=== PATIENT | female | born 1950 | race Caucasian/White ===

== ENCOUNTER 2020-04-15 20:42 | Emergency (ER) | payer BC ==
[~2020-04-15] VITALS: Ht 144.8 cm; Wt 75.9 kg
[~2020-04-15 20:42] MED LIST: IBUPROFEN200 MG PO; NORCO 5-325 TA1 EACH PO
== END 2020-04-15 22:30 | disposition home or self-care (01) ==
LOC: ED 20:42
DX: S01.01XA Laceration without foreign body of scalp, initial encounter (principal); W22.8XXA Striking against or struck by other objects, initial encounter; Z87.891 Personal history of nicotine dependence; Z88.5 Allergy status to narcotic agent
CPT/HCPCS: 12001; 99282-25

== ENCOUNTER 2024-01-30 16:51 | Emergency (ER) | payer BC ==
[~2024-01-30] VITALS: Ht 149.9 cm; Wt 72.4 kg
[~2024-01-30 16:51] MED LIST changes: +CALCIUM500 MG PO; +HYDROCODON-ACE1 EA11 PO; +MAGNESIUM30 MG PO; +OMEGA 3 FISH O1 EACH PO
[2024-01-30] MEDS ORDERED: LOSARTAN POTASS25 MG PO (18:15)
[2024-01-30] MEDS ORDERED: CLOPIDOGREL75 MG PO (18:15)
[2024-01-30] MEDS ORDERED: METOPROLOL TART25 MG PO (18:16)
[2024-01-30] MEDS ORDERED: ASPIRIN81 MG PO (18:16)
[2024-01-30] MEDS ORDERED: ATORVASTATIN CA80 MG PO (18:16)
[2024-01-30] MEDS ORDERED: CYCLOBENZAPRINE10 MG PO (18:34)
[2024-01-30] MEDS ORDERED: ONDANSETRON ODT8 MG PO (18:34)
[2024-01-30] MEDS ORDERED: HYDROCODON-ACE1 EA10 PO (18:34)
[2024-01-30] MEDS ORDERED: HYDROmorphone HCL 1 MG/ML SYR IM ONE (18:45)
[2024-01-30] MEDS ORDERED: HYDROCODONE/ACETA 5/325 TAB PO ONE (19:00)
[2024-01-30 19:12] VITALS: BP 164/67
== END 2024-01-30 19:12 | disposition home or self-care (01) ==
LOC: ED 16:51
DX: M25.512 Pain in left shoulder (principal); I25.2 Old myocardial infarction; Z87.891 Personal history of nicotine dependence; Z95.5 Presence of coronary angioplasty implant and graft; Z88.5 Allergy status to narcotic agent; Z79.82 Long term (current) use of aspirin; Z79.899 Other long term (current) drug therapy; X50.1XXA Overexertion from prolonged static or awkward postures, initial encounter
CPT/HCPCS: 99283

== ENCOUNTER 2024-05-01 05:34 | Emergency (ER) | payer BC ==
[~2024-05-01] VITALS: Ht 149.9 cm; Wt 74.8 kg
[~2024-05-01 05:34] MED LIST changes: +ASPIRIN81 MG PO; +ATORVASTATIN CA80 MG PO; +CLOPIDOGREL75 MG PO; +CYCLOBENZAPRINE10 MG PO; +HYDROCODON-ACE1 EA10 PO; +LOSARTAN POTASS25 MG PO; +METOPROLOL TART25 MG PO; +ONDANSETRON ODT8 MG PO
[2024-05-01] MEDS ORDERED: ASPIRIN 81 MG CHEW PO ONE (05:45)
[2024-05-01 05:52] LABS: EOSINOPHILS 2.5 % (0-6); HEMATOCRIT 39.3 % (35.0-50.0); HEMOGLOBIN 13.5 g/dL (12.0-18.0); LYMPHOCYTES 39.3 % (24-44); MCHC 34.4 g/dl (30-36); MCV 90.2 fl (81-99); MONOCYTES 10.8 % (0-12); NEUTROPHILS 46.4 % (39-80); PLATELET COUNT 190 K/uL (140-440); RBC 4.36 M/ul (4.3-5.7); RDW 13.8 (10.5-15.0)
[2024-05-01] MEDS ORDERED: FAMOTIDINE 20 MG/ 2 ML VIAL IV ONE (06:15)
[2024-05-01 06:26] LABS: ALBUMIN 3.3 g/dL (3.4-5.0); ALBUMIN/GLOBULIN RATIO 0.85 (1.1-2.4); ANION GAP 11.8 (7-21); BILIRUBIN, TOTAL 0.5 ng/dL (0.2-1.0); BUN/CREATININE RATIO 19.17 (6.0-28.6); CALCIUM 8.4 mg/dL (8.5-10.1); CREATININE, SERUM 0.73 mg/dL (0.55-1.02); MAGNESIUM 2.2 mg/dL (1.8-2.4); POTASSIUM 3.8 mmol/L (3.5-5.1); PROTEIN, TOTAL 7.2 g/dL (6.4-8.2)
[2024-05-01 06:26] LABS: CORONAVIRUS COVID-19 AG NEGATIVE (NEGATIVE); INFLUENZA A AG NEGATIVE (NEGATIVE); INFLUENZA B AG NEGATIVE (NEGATIVE)
[2024-05-01 06:59] LABS: ERYTHROCYTE SEDIMENTATION RATE 14
[2024-05-01] MEDS ORDERED: PEPCID20 MG PO (07:01)
[2024-05-01 07:22] VITALS: BP 116/52
--- NOTE | 2024-05-01 21:43 | EKG ---
[facility] [address] [facility] [place] [address] Signed Sinus rhythm with marked sinus arrhythmia Otherwise normal ECG When compared with ECG of 17-MAY-2023 19:32, ST no longer depressed in Inferior leads ST no longer elevated in Anterolateral leads QT has lengthened Confirmed by Kassy San MD () on 05/01/2024 9:43:45 PM Electronically Signed By: KASSY SAN MD 05/01/24 2143 PATIENT NAME: MADELEINE BROWN Electrocardiogram DATE OF : 46 PHYSICIAN: KASSY SAN MD REPORT #: [id number] REPORT IS CONFIDENTIAL AND NOT TO BE RELEASED WITHOUT AUTHORIZATION
== END 2024-05-01 07:23 | disposition home or self-care (01) ==
LOC: ED 05:34
PROVIDERS: Internal Medicine
DX: R07.89 Other chest pain (principal); I25.10 Atherosclerotic heart disease of native coronary artery without angina pectoris; I25.2 Old myocardial infarction; Z87.891 Personal history of nicotine dependence; Z88.5 Allergy status to narcotic agent; Z79.899 Other long term (current) drug therapy; Z79.82 Long term (current) use of aspirin
CPT/HCPCS: 36415; 71045; 80053; 80307; 83690; 83735; 83880; 84484; 85025; 85651; 93005; 93010; 96374; 99285-25; A9270

== ENCOUNTER 2025-01-11 05:29 | Emergency (ER) | payer MEDICARE, OTHER ==
[~2025-01-11] VITALS: Ht 149.9 cm; Wt 74.0 kg
[~2025-01-11 05:29] MED LIST changes: -METOPROLOL TART25 MG PO; +PEPCID20 MG PO
[2025-01-11] MEDS ORDERED: MORPHINE SULFATE 4 MG/ML VIAL IV ONE (05:45)
[2025-01-11] MEDS ORDERED: SODIUM CHLORIDE 0.9% 1,000 ML IV ONE (05:45)
[2025-01-11 06:12] LABS: BASOPHILS 0.5 % (0.1-1.2); EOSINOPHILS 0.2 % (0.7-5.8); LYMPHOCYTES 16.0 % (19.3-51.7); MCH 30.7 PG (25.6-32.2); MCHC 34.9 g/dL (32.2-35.5); MCV 88.0 fL (79.4-94.8); MONOCYTES 4.9 % (4.7-12.5); NEUTROPHILS 77.6 % (34.0-71.1); RBC 4.24 M/uL (3.93-5.22)
[2025-01-11 06:28] LABS: ALT (SGPT) 25.0 U/L (14-59); AST (SGOT) 16.0 U/L (15-37); GLOMERULAR FILTRATION RATE,EST 93.0 mL/min (>60); PROTEIN, TOTAL 7.3 g/dL (6.4-8.2); UREA NITROGEN 10.0 mg/dL (7-18)
[2025-01-11 07:35] LABS: BLOOD/HGB, URINE SMALL (Negative); KETONE, URINE NEGATIVE (Negative); LEUK ESTERASE, URINE NEGATIVE (negative); NITRITE, URINE NEGATIVE (negative)
[2025-01-11 07:40] LABS: BACTERIA, URINE NONE SEEN /hpf (negative); CASTS, URINE NONE SEEN \\lpf; CRYSTALS, URINE NONE SEEN (0-1+); EPITHELIAL CELLS, URINE SQUAMOUS 2+ /lpf (0-1+); REFLEX CULTURE, URINE No (No)
[2025-01-11] MEDS ORDERED: PROTONIX40 MG PO (07:44)
[2025-01-11] MEDS ORDERED: CARAFATE1 GM PO (07:44)
[2025-01-11] MEDS ORDERED: LIDOCAINE & ANTACID 35 ML BTL PO ONE (07:45)
[2025-01-11] MEDS ORDERED: SUCRALFATE 1 GM TAB PO ONE (07:45)
[2025-01-11] MEDS ORDERED: PANTOPRAZOLE SODIUM 40 MG/10 ML VIAL IV ONE (07:45)
[2025-01-11 08:44] VITALS: BP 142/60
[2025-01-12] MEDS ORDERED: METOPROLOL TART25 MG PO (12:50)
== END 2025-01-11 08:45 | disposition home or self-care (01) ==
LOC: ED 05:29
PROVIDERS: Family Medicine
DX: K29.70 Gastritis, unspecified, without bleeding (principal); K80.20 Calculus of gallbladder without cholecystitis without obstruction; I25.2 Old myocardial infarction; Z87.891 Personal history of nicotine dependence; Z95.5 Presence of coronary angioplasty implant and graft; Z88.5 Allergy status to narcotic agent; Z79.02 Long term (current) use of antithrombotics/antiplatelets; Z79.82 Long term (current) use of aspirin; Z79.899 Other long term (current) drug therapy
CPT/HCPCS: 36415; 74177; 80053; 81001; 83690; 85025; 96374; 96375; 99284-25; J2270; J2405; J2470; J7030

== ENCOUNTER 2025-01-12 07:46 | Observation (INO) | payer MEDICARE, OTHER ==
[~2025-01-12] VITALS: Ht 149.9 cm; Wt 74.1 kg
[~2025-01-12 07:46] MED LIST changes: +CARAFATE1 GM PO; +PROTONIX40 MG PO
--- OUTSIDE RECORDS SUMMARY | 2025-01-12 07:50 | XMS ---
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 Rl has no Care Guidelines for this patient. David V[facility] (12 MO.) [facility] NOTE: Visits indicate total known visits. ED/C VISIT TRACKING (12 MO.) 01/12/2025 07:46 [facility] [place] TYPE: Emergency COMPLAINT: - ABDOMINAL PAIN 01/11/2025 05:30 [facility] [place] TYPE: Emergency COMPLAINT: - ABDOMINAL PAIN 05/01/2024 05:34 [facility] [place] TYPE: Emergency COMPLAINT: - BODY PAIN DIAGNOSES: - Allergy status to narcotic agent - Atherosclerotic heart disease of [place] coronary artery without angina pectoris - Chest pain, unspecified - MCC (current) use of aspirin - Old myocardial infarction - Other chest pain - Other halfway (current) drug therapy - Personal history of nicotine dependence 01/30/2024 16:51 [facility] [place] TYPE: Emergency COMPLAINT: - SHOULDER PAIN DIAGNOSES: - Allergy status to narcotic agent - MCC (current) use of aspirin - Old myocardial infarction - 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
[2025-01-12] MEDS ORDERED: KETOROLAC TROMETHAMINE 30 MG/ML VIAL IV ONE (08:15)
[2025-01-12] MEDS ORDERED: SODIUM CHLORIDE 0.9% 500 ML IV PRN (08:15)
[2025-01-12] MEDS ORDERED: HYDROmorphone HCL 1 MG/ML SYR IV PRN ×2 (08:15→23:00)
[2025-01-12 08:23] LABS: BASOPHILS 0.9 % (0.1-1.2); EOSINOPHILS 0.2 % (0.7-5.8); LYMPHOCYTES 16.5 % (19.3-51.7); MCH 30.6 PG (25.6-32.2); MCHC 34.3 g/dL (32.2-35.5); MCV 89.1 fL (79.4-94.8); MONOCYTES 4.3 % (4.7-12.5); NEUTROPHILS 77.1 % (34.0-71.1); RBC 4.48 M/uL (3.93-5.22)
[2025-01-12 08:40] LABS: ALT (SGPT) 17.0 U/L (14-59); AST (SGOT) 15.0 U/L (15-37); GLOMERULAR FILTRATION RATE,EST 91.0 mL/min (>60); PROTEIN, TOTAL 7.7 g/dL (6.4-8.2); UREA NITROGEN 7.0 mg/dL (7-18)
[2025-01-12] MEDS ORDERED: PIPERACILLIN/TAZOBACTAM 4.5 GM in SODIUM CHLORIDE 0.9% 100 ML IV ONE (09:15)
--- NOTE | 2025-01-12 11:35 | NUR ---
REPORT RECEVED FROM FOZIA POPE IN THE ER AT THIS TIME OVER THE PHONE. ALL QUESTIONS AND CONCERNS ADRESSED AT THIS TIME. CALL ENDED.
[2025-01-12 12:04] VITALS: BP 130/59
[2025-01-12 12:16] LABS: BLOOD/HGB, URINE MODERATE (Negative); KETONE, URINE SMALL (Negative); LEUK ESTERASE, URINE NEGATIVE (negative); NITRITE, URINE NEGATIVE (negative)
[2025-01-12 12:39] LABS: BACTERIA, URINE NONE SEEN /hpf (negative); CASTS, URINE NONE SEEN \\lpf; CRYSTALS, URINE NONE SEEN (0-1+); EPITHELIAL CELLS, URINE SQUAMOUS 3+ /lpf (0-1+); REFLEX CULTURE, URINE No (No)
[2025-01-12] MEDS ORDERED: METOPROLOL TART25 MG PO (12:50)
--- NOTE | 2025-01-12 12:50 | NUR ---
MED REC COMPLETE
[2025-01-12] MEDS ORDERED: SEVOFLURANE 250 ML BTL INH ONE (12:51)
--- NOTE | 2025-01-12 13:42 | NUR ---
INTO SEE PATIENT. PERSONAL HEALTH INFORMATION REVIEWED. PATIENT LIVES AT HOME WITH HER . 3 STEPS INTO THE HOME. DENIES ANY DIFFCULTY DOING THEM. DOES NOT USE ANY DME. DOES STILL DRIVE. DENIES ANY DIFFCULTY PAYING UTLITIES OR OBTIANING FOOD. PATIENT HAS A RIDE HOME WHEN MEDICALLY CLEARED FOR D/C. NO FUTHER CM NEEDS.
--- NOTE | 2025-01-12 13:43 | NUR ---
THIS RN GAVE AN UPDATE TO REGARDING IN A LUMP IN THE PATIENT BREAST THAT WAS TOLD TO ME BY FOZIA SOTELO. IS ROUNDING ON THE PATIENT AT THIS TIME.
[2025-01-12] MEDS ORDERED: MORPHINE SULFATE 4 MG/ML VIAL IV PRN (14:45)
[2025-01-12] MEDS ORDERED: NS + 20 mEq KCl 1,000 ML IV SCH (14:45)
[2025-01-12] MEDS ORDERED: PIPERACILLIN/TAZOBACTAM 4.5 GM in DEXTROSE 5% 100 ML IV SCH (15:00)
--- NOTE | 2025-01-12 15:10 | NUR ---
THIS RN CLARIFIED ORDER FOR PLATELETS WITH . CLARIFIED THAT HE WANTS 2 UNITS OF PLATELETS. REPORTS 1 UNIT IS EQUAL TO A 6 PACK. ORDER PUT IN BY THIS RN FOR TWO UNITS OF PLATELETS. PATIENT STATED NO FURTHER NEEDS AT THIS TIME.
[2025-01-12] MEDS ORDERED: METOPROLOL TARTRATE 25 MG TAB PO SCH (15:22)
[2025-01-12] MEDS ORDERED: ATORVASTATIN 40 MG TAB PO SCH (15:26)
[2025-01-12] MEDS ORDERED: PANTOPRAZOLE SODIUM 40 MG TABEC PO SCH (15:27)
[2025-01-12 15:36] LABS: ABO O
[2025-01-12 15:37] LABS: ANTIBODY SCREEN NEGATIVE; RH POSITIVE
[2025-01-12 15:38] LABS: ABO O; RH POSITIVE
--- NOTE | 2025-01-12 15:50 | NUR ---
DR OLIVEROS CALLED DUE TO PATIENT BEING NPO AND THERE BEING AN ORDER FOR PO MEDICATIONS. STATES "YEAH JUST GIVE THEM WITH A SIP OF WATER". WITH NO FURTHER ORDERS AT THIS TIME. CALL ENDED.
--- NOTE | 2025-01-12 16:22 | NUR ---
PATIENT MEDICATED PER EMAR. PATIENT'S AT BEDSIDE. PATIENT WITHOUT FURTHER NEEDS AT THIS TIME. CALL LIGHT AND PERSONAL BELONGINGS ARE WITHIN REACH. VITAL SIGNS TAKEN AND ARE STABLE.
[2025-01-12 16:23] VITALS: BP 135/43
--- NOTE | 2025-01-12 17:46 | NUR ---
PATIENT RESTING IN BED, BREATHING EVEN AND UNLAABORED. DENIES ANY NEEDS AT THIS TIME. CALL LIGHT IN REACH.
[2025-01-12 18:30] VITALS: BP 132/50
--- NOTE | 2025-01-12 18:35 | NUR ---
PATIENT IN BED AT THIS TIME. INSURANCE ACCOUNT MANAGER CHARTED VITALS AND I&O'S. CALL LIGHT WITHIN REACH, NO FURTHER NEEDS.
--- NOTE | 2025-01-12 18:57 | NUR ---
PATIENT IN BED AT THIS TIME. THIS CIRCULAR STUFFER AND CIRCULAR STUFFER MARTIN CHANGED PATIENTS BEDDING AND WIPED PATIENT DOWN WITH PRE SURGICAL WIPES. THIS CIRCULAR STUFFER ALSO ASSISTED PATIENT TO BEDSIDE COMMODE. CALL LIGHT WITHIN REACH, NO FURTHER NEEDS AT THIS TIME.
--- NOTE | 2025-01-12 19:15 | NUR ---
REPORT RECEIVED FROM FOZIA SOTELO. PT RESTING IN BED, WAITING ON TRANSPORT TO SURGERY. DENIES NEEDS AT THIS TIME. CALL LIGHT WITHIN REACH.
[2025-01-12] MEDS ORDERED: LIDOCAINE HCL 1% 30 ML SDV ONE (19:20)
[2025-01-12] MEDS ORDERED: DEXAMETHASONE SOD PHOS 4 MG/ML VIAL ONE (19:20)
[2025-01-12] MEDS ORDERED: ROCURONIUM BROMIDE 50 MG/5 ML SYR ONE ×2 (19:20→21:07)
[2025-01-12] MEDS ORDERED: LIDOCAINE HCL 2% 5 ML SDV ONE (19:20)
[2025-01-12] MEDS ORDERED: fentaNYL citrate 100 MCG/2 ML VIAL ONE (19:21)
--- NOTE | 2025-01-12 19:30 | NUR ---
[facility] NURSES HERE TO TRANSPORT PT TO SURGERY.
[2025-01-12] MEDS ORDERED: SODIUM CHLORIDE 0.9% 500 ML IV ONE (19:32)
[2025-01-12] MEDS ORDERED: SUGAMMADEX SODIUM 200 MG/2 ML ML ONE (21:52)
[2025-01-12] MEDS ORDERED: TRANEXAMIC ACID 1,000 MG/10 ML AMP ONE ×2 (21:55→22:05)
[2025-01-12] MEDS ORDERED: LACTATED RINGER'S 1,000 ML IV ONE (22:17)
[2025-01-12] MEDS ORDERED: HYDROCODONE/ACETA 5/325 TAB PO PRN (22:30)
[2025-01-12] MEDS ORDERED: fentaNYL citrate 50 MCG/ML SDV IV PRN (23:00)
[2025-01-12] MEDS ORDERED: IBLOOD GLUCOSE TEST STRIP 1 EA TEST VI PRN (23:00)
[2025-01-12] MEDS ORDERED: NALOXONE HCL 0.4 MG SYR IV PRN (23:00)
[2025-01-13] VITALS (12 sets, daily range): BP systolic 104–133; BP diastolic 48–90
--- NOTE | 2025-01-13 00:30 | NUR ---
PT RECEIVED BACK TO ROOM 112 VIA HOSPITAL BED. OBTAINED REPORT FROM COMPRESSOR BATTERY PELLETS DAVY. PT DROWSY, OPENS EYES AND ANSWERS SIMPLE QUESTIONS THEN QUICKLY BACK TO SLEEP. REPORTS PAIN "TOLERABLE" WOULD NOT GIVE A NUMBER. ON 2L O2 VIA SIMPLE MASK-CPOX PLACED. O2 SATS 95%. LSC BUT DIM TO BASES, SHALLOW. HRR. ABD OBESE, SOFT, SLIGHTLY TENDER. BT HYPO X 4. DENIES NAUSEA. 4 LAP SITES CDI, GLUE IN PLACE. LARS DRAIN TO RIGHT ABD W/ MODERATE SANGUINOUS DRNG, LUKE DRSG W/ SHADOW OF DRNG. DUE TO VOID. RIGHT HAND IV INFUSING NS + 20K @ 75MLS/HR, REPORTS SOME DISCOMFORT W/ INITIATION OF IVF, IV SITE WNL. SCD'S IN PLACE. CALL LIGHT WITHIN REACH, DENIES ANY FURTHER NEEDS.
--- NOTE | 2025-01-13 01:13 | NUR ---
01/13/25 0113 Rosmery Schwarz 2240-PT ARRIVED TO PACU WITH OPA IN PLACE ON 6L O2 VIA MASK. PT NON RESPONSIVE TO TACTILE STIMULI. IV SITE ASSESSED. SURGICAL SITES VISUALIZED. 5-PT NOTED TO OPEN EYES AND THEN APPEARS TO HAVE FALLEN BACK ASLEEP. 40 CC OF SS FLUID DRAINED FROM DRAIN ON R SIDE OF ABD. 2250-PT WAKING AND SWALLOW REFLEX NOTED. OPA REMOVED. PT REMAINS WITH [address] AT 6L/MASK. 2255-PT RESPONSIVE TO VERBAL AND TACTILE STIMULI. SATS 96-99% WITH OXYGEN IN PLACE AT 6L/MASK. PT DENIES PAIN OR NAUSEA WHEN ASKED. 2300-MILD SNORE NOTED. HOB ELEVATED SLIGHTLY TO APPROX 15-20 DEGREES TO HELP FACILITATE EASIER BREATHING. 2305-PTS OXYGEN TIRATED TO RA. PT ENCOURAGED TO DEEP BREATH AND COUGH. PT WAS PROVIDED WITH A PILLOW TO HUG TO ABD TO HELP MINIMIZE DISCOMFORT WITH THIS ACTIVITY AND HAS DEMONSTRATED UNDERSTANDING OF HOW TO DO THIS. 2310-PTS SATS DECREASING DESPITE COUGH AND DEEP BREATHING EXERCISES. PT PLACED BACK ON 02 AT 5LPM VIA MASK WHEN SATS DECREASED TO 86-88%. 2320-PT ENCOURAGED TO CONT COUGHING AND DEEP BREATHING. PT UTILIZING PILLOW TO SPLINT ABD WITH THIS ACTIVITY. 2325-PT REPORTS SOME PAIN IN UPPER R SHOULDER AND IN R SIDE OF ABD. PT EDUCATED ON INCISIONS AND DRAIN. PT REPORTS PAIN IS TOLERABLE AND RATES PAIN AT 3/10. PT ALSO EDUCATED ON GAS PAIN THAT CAN BE FELT IN SHOULDER COMMONLY AFTER THIS SURGERY. 2330-PTS SATS REMAIN 95% OR GREATER ON 5L/MASK. TITRATED O2 DOWN TO 3L VIA MASK. DRAIN EMTIED OF AN ADDITIONAL 40 CC SS DRAINAGE. PT REPOSITIONED TO HELP WITH DISCOMFRT IN SHOULDER AND R SIDE OF ABD. 2335-PT TITRATED OFF O2 TO RA. SATS 95-99%. BREATHING APPEARS EVEN AND UNLABORED. 2340-PT GIVEN A FEW ICE CHIPS. HOB ELEVATED TO APPROX 30-40 DEGREES. 2345-PT NOTED TO BE GRIMACING AND SATS DECREASING TO 89-90. PT APPEARS TO BE TAKING SHALLOW BREATHS. PT REPORTS INCREASE IN PAIN IN R ABD AREA AND RATES PAIN AT 8/10. 25MCG OF FENTANYL GIVEN FOR PAIN RELIEF. REFER TO EMAR FOR MORE DETAILS. 2350-PT REPORTS NO IMPROVEMENT IN PAIN AND GIVEN ADDITIONAL 25 MCG FENTANYL FOR PAIN RELIEF. PT ENCOURAGED TO CONT DEEP BREATHING AND COUGHING EXERCISE. 2355-SATS NOTED TO DECREASE TO 84% ON RA DESPITE COUGH AND DEEP BREATHING EXERSIDES AND IMPROVED PAIN CONTROL. ATTEMPTS TO UTILIZE NC AT 2-4LPM UNSUCCESSFUL AND SATS CONT TO REMAIN IN MID TO LOW 80'S. 0000- 02 MASK PLACED BACK ON PT AT 5LPM. SATS IMPROVED TO 94% OR GREATER WITHIN A FEW MINS. RT CALLED FOR ASSESS AND EVAL. 0005-RT ARRIVED AND ASSESSES PT. SLIGHT SNORE NOTED. NO WHEEZING. OXY MASK PLACED ON PT AND PT WAS ABLE TO BE WEENED DOWN TO 2L WITH SATS STABLE AT 94%. 0010-PT REPORTS PAIN IMPROVED AND IS NOW TOLERABLE AT 2/10. SATS CONT TO REMAIN STABLE AT 94-95% ON 2L VIA OXYMASK. MED SURG NOTIFIED OF PTS RETURN. 0020-PT TRANSFERRED BACK TO MS RM 112 VIA BED. REPORT GIVEN TO MS FOZIA Urena. SURGICAL SITES AND DRAIN VISUALIZED WITH MS RN WELL. ALL QUESTIONS ANSWERED. BED IN LOW POSITION, WHEELS LOCKED, BILAT RAILS IN PLACE. CALL LIGHT WITHIN PT REACH. ALL PERSONAL BELONGINGS TAKEN WITH PT.
--- NOTE | 2025-01-13 01:49 | NUR ---
POST-OP VS OBTAINED-WNL. PT ASLEEP, APPEARS COMFORTABLE.
--- NOTE | 2025-01-13 03:04 | NUR ---
PT ASSISTED TO BSC, 1 SBA, REPORTS SOME DIZZINESS UPON GETTING TO EOB. VOIDS WNL. RIGHT ABD LARS DRAIN EMPTIED 25cc SANGUINOUS DRNG. LUKE MICHAUD TO LARS DRAIN SATURATED AND LOOSE-NEW DRAIN SPONGES PLACED. PT REPORTS RIGHT ABD/HIP PAIN 9/10, MEDICATED W/ PRN NORCO. PT SIPPING ON WATER, DECLINES ANYTHING ELSE TO DRINK AT THIS TIME. CALL LIGHT WITHIN REACH.
[2025-01-13 05:36] LABS: BASOPHILS 0.1 % (0.1-1.2); EOSINOPHILS 0 % (0.7-5.8); LYMPHOCYTES 7.4 % (19.3-51.7); MCH 30.0 PG (25.6-32.2); MCHC 33.1 g/dL (32.2-35.5); MCV 90.7 fL (79.4-94.8); MONOCYTES 3.1 % (4.7-12.5); NEUTROPHILS 89.1 % (34.0-71.1); RBC 3.33 M/uL (3.93-5.22)
--- NOTE | 2025-01-13 05:36 | NUR ---
PT AWAKE, WATCHING TV. REQUESTING SOMETHING TO EAT-PT INFORMED OF CLEAR LIQ DIET ORDER. PT PROVIDED W/ JELLO. BTA X 4. ABD ROUNDED, SLIGHTLY TENDER TO PALPATION. DENIES FLATUS. CALL LIGHT WITHIN REACH.
[2025-01-13 05:56] LABS: ALT (SGPT) 34.0 U/L (14-59); AST (SGOT) 40.0 U/L (15-37); GLOMERULAR FILTRATION RATE,EST 95.0 mL/min (>60); PROTEIN, TOTAL 6.1 g/dL (6.4-8.2); UREA NITROGEN 7.0 mg/dL (7-18)
--- NOTE | 2025-01-13 06:25 | NUR ---
PT IS ON RA, O2 SATS WNL. CPOX REMAINS IN PLACE.
--- NOTE | 2025-01-13 07:00 | NUR ---
REPORT RECIEVED FROM FOZIA HERNANDEZ. PATIENT RESTING IN BED WITH HER EYES CLOSED. EVEN AND UNLABORED RESPIRATIONS NOTED. CALL LIGHT AND PERSONAL BELONGINGS ARE WITHIN REACH. IV FLUIDS INFUSING PER ORDER. WHITE BOARD UPDATED.
--- NOTE | 2025-01-13 07:35 | NUR ---
UR CLINICAL REVIEW: 2 MN FOR VERSALUS- PER COMMUNITY ARTIST MEETS OBS FOR LAP N[facility]STOR WITH [facility]. MEDICARE OBS 01/12/25 @ 0918 ORDER MATCHES REG NO AUTH REQUIRED PER MEDICARE GUIDELINES ANTICIPATE DC 01/13-01/14/25 01/14/25
--- NOTE | 2025-01-13 08:26 | NUR ---
PATIENT MEDICATED PER EMAR. PATIENT ASSESSMENT COMPLETED. PATIENT IS ALERT AND ORIENTED. PATIENT REPORTING 5/10 PAIN. PATIENT UP TO THE BATHROOM VIA 1 PERSON ASSIST. PATIENT TOLERATED WELL. PATIENT WITH CLEAR YELLOW URINE. PATIENT IV FLUSHED WITH 10 ML OF NS, DRESSINGS ARE INTACT. IV TO LEFT AC IS SALINE LOCKED. IV TO RIGHT HAND WITH FLUIDS INFUSING CONTINUOUS PER ORDER. PATIENT BACK TO BED. SCD'S PLACED. PATIENT BREAKFAST TRAY SET UP INFRONT OF PATIENT. PATIENT LARS DRESSING WITH SMALL AMOUNT OF SEROUSANGUINOUS DRAINAGE, NEW DRESSING APPLIED. LARS DRAIN SAFETY PINNED TO PATIENT'S GOWN TO PREVENT PULLING ON DRAIN. PATIENT'S VITAL SIGNS TAKEN AND ARE STABLE. PATIENT WITHOUT FURTHER NEEDS AT THIS TIME. CALL LIGHT AND PERSONAL BELONGINGS ARE WITHIN REACH.
--- NOTE | 2025-01-13 09:03 | NUR ---
INTO SEE PATIENT. STATES SHE DID NOT SLEEP MUCH AND SORE FROM SURGERY. PATIENT WILL GO HOME WITH WHEN MEDICALLY CLEARED FOR D/C. NO FUTHER CM NEEDS.
--- NOTE | 2025-01-13 09:13 | NUR ---
PATIENT RESTING IN BED FINISHING HER BREAKFAST. PATIENT REPORTS PAIN IS "DOING GOOD" AND DENIES ANY NAUSEA. PATIENT WITHOUT FURTHER NEEDS FROM THIS RN AT THIS TIME. CALL LIGHT AND PERSONAL BELONGINGS ARE WITHIN REACH.
--- NOTE | 2025-01-13 09:28 | NUR ---
PATIENT IS IN BED AT THIS TIME, BUTTONHOLE MACHINE OPERATOR CHARTED VITALS AND I&O'S, CALL LIGHT WITH IN REACH. AND NOTHING ELSE NEEDED AT THIS TIME.
--- NOTE | 2025-01-13 10:50 | NUR ---
PATIENT RESTING IN BED WITH HER EYES CLOSED. EVEN AND UNLABORED RESPIRATIONS NOTED. CALL LIGHT AND PERSONAL BELONGINGS ARE WITHIN REACH.
--- NOTE | 2025-01-13 11:20 | NUR ---
PATIENT IV ABX COMPLETED. IV FLUIDS INFUSING PER ORDER. PATIENT IS WITHOUT FURTHER NEEDS AT THIS TIME. CALL LIGHT AND PERSONAL BELONGINGS ARE WITHIN REACH.
--- NOTE | 2025-01-13 11:35 | NUR ---
VISITED DURING SPIRITUAL CARE ROUNDS. SHORT VISIT PT STATED DESIRE FOR NAP, NO IMMEDIATE NEEDS. PET CARE WORKER PROVIDED SUPPORTIVE PRESENCE, PRAYER.
--- NOTE | 2025-01-13 12:45 | NUR ---
PATIENT RESTING IN BED WITH HER AT BEDSIDE. LARS DRAIN SITE ASSESSED AND NOTED TO HAVE MODERATE AMOUNT OF SEROUSANGUINOUS DRAINAGE. STEPHEN, RN IN ROOM TO ASSESS DRAIN WITH THIS RN. LARS TUBING STRIPPED. NEW DRESSING APPLIED. PATIENT TOLERATING WELL. PATIENT EDUCATED ON IMPORTANCE OF GETTING UP FOR A WALK, PATIENT REQUESTING TO "GO IN A LITTLE BIT". PATIENT CALL LIGHT AND PERSONAL BELONGINGS ARE WITHIN REACH.
--- NOTE | 2025-01-13 13:12 | NUR ---
IN ROOM TO GET PATIENT UP FOR A WALK AND PATIENT STATES "CAN I FINISH THIS EPISODE? I THINK IT'S FINISHED AT 1:30." PATIENT AGREES TO CALL THIS RN WHEN READY FOR A WALK. CALL LIGHT AND PERSONAL BELONGINGS ARE WITHIN REACH. PATIENT'S AT BEDSIDE.
--- NOTE | 2025-01-13 14:35 | NUR ---
PATIENT UP AND WALKED 1.5 LAPS AROUND THE HALLS. PATIENT TOLERATED WELL. PATIENT WITH TOTAL OF 40ML OF LARS DRAINAGE. PATIENT AGREES TO SIT UP IN HER CHAIR. IV ABX AND FLUIDS INFUSING PER ORDER. PATIENT WITHOUT FURTHER NEEDS AT THIS TIME. CALL LIGHT AND PERSONAL BELONGINGS ARE WITHIN REACH. PATIENT DENIES ANY INCREASED PAIN AFTER AMBULATING IN THE HALLS.
--- NOTE | 2025-01-13 16:00 | NUR ---
PATIENT SITTING UP IN HER CHAIR WATCHING TV AND EATING JELLO. PATIENT DENIES ANY NEEDS AT THIS TIME. CALL LIGHT AND PERSONAL BELONGINGS ARE WITHIN REACH.
--- NOTE | 2025-01-13 17:15 | NUR ---
PATIENT SITTING UP IN HER CHAIR EATING DINNER. PATIENT DENIES ANY PAIN. PATIENT'S LARS DRAIN SITE ASSESSED AND NOTED TO HAVE LARGE AMOUNT OF DRAINAGE ON DRESSING. STEPHEN, ROAD SUPERVISOR OF ENGINES NOTIFIED. PATIENT REQUESTING TO FINISHED DINNER BEFORE SHE STANDS TO ADDRESS LARS DRAIN SITE. 1730 DR OLIVEROS TO THE FLOOR AND NOTIFIED ABOUT PATIENT'S DRAINAGE. MD STATES HE WILL BE IN TO ASSESS PATIENT. MD WITH NO FURTHER ORDERS AT THIS TIME.
--- NOTE | 2025-01-13 19:54 | NUR ---
Pt awake, anxious but cooperative. Up for a walk, walked around nursing station back and up back to room, tolerated well. Back to room. Medicated with 1 [place] per 5/10 abd pain. Cooperative with vitals and assessments. On room air. post op CPOX on at bedside. sats WNL. lungs cler bilat slightly dim but clear at bases. no cough at this time. abd soft, tender, SURI, passing gas and burping. abd incision well approximated open to air. LARS with scant old draingae at insertion site showing over gauze. will change. LARS with SS drainage. IVF infusing RH w/or problems. SCD's in place. No c/o n/v. Tolerating clear liquids. Reassured constantly and efforts praised.
--- NOTE | 2025-01-14 03:07 | NUR ---
Resting, awakens easily, onr oom air, IVF/IV ABX infusing w/o problems. LARS w ss drainage. gauze with small amount of drainage at edges. SCDs in place. no c/o pain, repositions self in bed. CPOX dc'd earlier
--- NOTE | 2025-01-14 04:40 | NUR ---
resting, on room air, no s/sx distress, IVF infusing w/o problems
[2025-01-14 05:02] VITALS: BP 124/47
--- NOTE | 2025-01-14 05:22 | NUR ---
awakens easily, IVF infusing w/o problems. and soft, passing gas, and burping, no bm. abd lap sites no changes. LARS draining sanguineous drainage 70cc . gauze with small amount of drainge at edges. Medicated with 1 norco c/o 6/10 abd pain.
[2025-01-14 06:51] VITALS: BP 124/47
--- NOTE | 2025-01-14 07:10 | NUR ---
REPORT RECIEVED FROM FOZIA HARRELL. PATIENT RESTING IN BED WITH HER EYES CLOSED. EVEN AND UNLABORED RESPIRATIONS NOTED. CALL LIGHT AND PERSONAL BELONGINGS ARE WITHIN REACH.
[2025-01-14 09:16] VITALS: BP 130/57
[2025-01-14 09:17] VITALS: BP 130/57
--- NOTE | 2025-01-14 09:20 | NUR ---
PATIENT MEDICATED PER EMAR. PATIENT RESTING IN BED WATCHING TV. PATIENT ASSESSMENT COMPLETED. PATIENT FINSIHED WITH BREAKFAST AND DENIES ANY NAUSEA.
--- NOTE | 2025-01-14 09:24 | EKG ---
[facility] [address] [facility] [place] [address] Signed Sinus rhythm with marked sinus arrhythmia Minimal voltage criteria for LVH, may be normal variant Septal infarct , age undetermined Possible Lateral infarct , age undetermined Abnormal ECG When compared with ECG of 01-MAY-2024 05:43, Septal infarct is now present No significant change was found Confirmed by Clayton Bell DO ([id number]) on 01/14/2025 9:24:13 AM Electronically Signed By: CLAYTON BELL DO 01/14/25 0924 PATIENT NAME: MADELEINE BROWN Electrocardiogram DATE OF : 46 PHYSICIAN: CLAYTON BLEL DO REPORT #: [id number] REPORT IS CONFIDENTIAL AND NOT TO BE RELEASED WITHOUT AUTHORIZATION
[2025-01-14] MEDS ORDERED: HYDROCODON-ACE1 EA10 PO (09:33)
--- NOTE | 2025-01-14 09:35 | NUR ---
DR OLIVEROS AT BEDSIDE TALKING WITH PATIENT ABOUT DISCHARGE. MD REQUESTING THIS RN TO GIVE PATIENT ANOTHER PAIN PILL DUE TO MD PULLING PATIENT'S LARS DRAIN. PAIN PILL ADMINISTED PER EMAR.
--- NOTE | 2025-01-14 09:40 | NUR ---
DR OLIVEROS AT BEDSIDE. LARS DRAINED PULLED. BLEEDING CONTROLLED. PLACED DRESSING OF GAUZE AND SECURED WITH FOAM TAPE OVER OLD LARS SITE. PATIENT TOLERATED WELL. PATIENT WITHOUT FURTHER NEEDS AT THIS TIME. CALL LIGHT AND PERSONAL BELONGINGS ARE WITHIN REACH.
[2025-01-14 10:53] VITALS: BP 122/54
--- NOTE | 2025-01-14 11:30 | NUR ---
PATIENT IV'S REMOVED. PRESSURE DRESSING OF GAUZE AND COBAN APPLIED. CATH TIPS WERE INTACT. NO REDNESS OR SWELLING NOTED AT IV SITES. PATIENT EDUCATED ON IV SITE CARE.
--- NOTE | 2025-01-17 16:47 | PATH ---
[facility] [address] [place], [place] [address] Signed SPECIMEN(S): A GALLBLADDER WITH STONES SPECIMEN SOURCE: A. GALLBLADDER WITH STONES CLINICAL HISTORY: Acute cholecystitis, cholelithiasis FINAL PATHOLOGIC DIAGNOSIS: Gallbladder with stones: - Chronic calculous cholecystitis with focal adenomyosis. COMMENT: As part of [facility]' Quality Improvement Program, this case was reviewed by another member of our pathology staff. RembertoVR:monae MICROSCOPIC EXAMINATION: Histologic sections of all submitted blocks are examined by light microscopy. These findings, together with the gross examination, support the pathologic diagnosis. GROSS DESCRIPTION: The specimen, labeled and designated "Mick Almendarez, gallbladder with stones per requisition," is received in formalin and consists of Specimen: Surgically disrupted gallbladder. Dimensions: 7.6 x 3.7 x 3.5 cm. Serosa: [place]-purple and smooth. Cystic Duct: Unobstructed, inked. Calculi: Present�black and multifaceted. Mucosa: [place]-brown and velvety to trabecular with multiple cystic cavities at the fundus ranging from 0.5 to 1.2 cm in greatest dimension.. Wall thickness: 0.3 to 0.7 cm. Lymph node: No pericystic lymph nodes are grossly identified. Additional: None. School Bus Attendant sections are submitted in (A1). AA (under the direct supervision of a pathologist) The Gross Description was prepared using a voice recognition system. The report was reviewed for accuracy; however, sound-alike word errors, addition and/or deletions may occur. If there is any question about this report, please contact Client Services. PATIENT NAME: MADELEINE ALMENDAREZ PATHOLOGY DATE OF : 46 REPORT #: [id number] PHYSICIAN: ALISON MATHUR PCP: PHIL MITCHELL PA-C REPORT IS CONFIDENTIAL AND NOT TO BE RELEASED WITHOUT AUTHORIZATION [facility] [address] [facility] [place], [place] [address] Signed PERFORMING LABORATORY: Technical component was performed by [facility], [address] [place] [address] (CLIA# [id number]). Professional interpretation was performed by [facility], [address] [place] [id number] (CLIA#: [id number]). Diagnostician: Jose Phan MD Pathologist Electronically Signed 01/17/2025 Copies: ~ PATIENT NAME: MADELEINE ALMENDAREZ PATHOLOGY DATE OF : 46 REPORT #: [id number] PHYSICIAN: ALISON MATHUR PCP: PHIL MITCHELL PA-C REPORT IS CONFIDENTIAL AND NOT TO BE RELEASED WITHOUT AUTHORIZATION
== END 2025-01-14 11:40 | disposition home or self-care (01) ==
LOC: ED 07:46 → MS 07:47
PROVIDERS: Emergency Medicine; ADMIT Surgery; ATTEND Surgery
PROC: BF52200 Other Imaging of Gallbladder using Fluorescing Agent, Indocyanine Green Dye, Intraoperative (ICD-10-PCS; 2025-01-12)
PROC: 0FT44ZZ Resection of Gallbladder, Percutaneous Endoscopic Approach (ICD-10-PCS; principal; 2025-01-12 19:46)
DX: K80.10 Calculus of gallbladder with chronic cholecystitis without obstruction (principal); Z88.5 Allergy status to narcotic agent; Z87.891 Personal history of nicotine dependence
CPT/HCPCS: 00790; 36415; 76705; 80053; 81001; 83690; 85025; 86850; 86900; 86901; 88304; 93005; 93010; 94762; 96365; 96366; 96374; 96375; 96376; 99285-25; A9270; G0378; J1100; J1171; J1885; J2003; J2405; J2543; J2704; J3010; J3480; J3490; J7040; J7121; P9035